=== PATIENT | male | born 1945 | race Caucasian/White ===

== ENCOUNTER 2018-08-09 02:46 | Inpatient (IN) | payer OTHER ==
[2018-08-09] MEDS ORDERED: ONDANSETRON HCL INJ/PF 4 MG/2 ML SDV IV ONE (03:57)
[2018-08-09] MEDS ORDERED: FENTANYL CITRATE INJ/PF 100 MCG/2 ML AMPUL IV ONE ×2 (04:00→05:57)
--- NOTE | 2018-08-09 04:13 | ER Document Report ---
ED General <JESS MEADE - Last Filed: 08/09/18 06:21> - HPI Patient complains to provider of: severe abdominal pain radiates to back Onset: This evening <GENARO FERNANDEZ - Last Filed: 08/09/18 06:23> <SHIMON OGLESBY - Last Filed: 08/09/18 06:54> <GOPAL ANDERSON - Last Filed: 08/09/18 09:51> - General Chief Complaint: Abdominal Pain Stated Complaint: ABDOMINAL PAIN Time Seen by Provider: 08/09/18 03:47 Notes: 72-year-old male with hypertension presents to the emergency department for severe abdominal pain that radiates to his back. He states the pain has been present for a couple of months but got acutely worse about 7 hours ago and he could not take the pain anymore and came to the emergency department. He endorses feeling nauseated and vomiting one time, denies fevers, denies dyspnea , denies chest pain. He has regular bowel movements last one was yesterday morning. (GENARO FERNANDEZ) - Related Data Allergies/Adverse Reactions: tetracycline Allergy (Verified 08/09/18 02:52) Past Medical History - General Information source: Patient - Social History Smoking Status: Current Every Day Smoker - 1/2 ppd for years Cigarette use (# per day): Yes - 10 Frequency of alcohol use: Occasional Drug Abuse: None Lives with: Spouse/Significant other Family History: Reviewed & Not Pertinent - Past Medical History Cardiac Medical History: Reports: Hx Hypertension <GENARO FERNANDEZ - Last Filed: 08/09/18 06:23> Review of Systems - Review of Systems Constitutional: See HPI EENT: See HPI Cardiovascular: See HPI Respiratory: See HPI Gastrointestinal: See HPI Genitourinary: See HPI Male Genitourinary: No symptoms reported Musculoskeletal: See HPI Skin: No symptoms reported Hematologic/Lymphatic: No symptoms reported Neurological/Psychological: No symptoms reported <GENARO FERNANDEZ - Last Filed: 08/09/18 06:23> Physical Exam <JESS MEADE - Last Filed: 08/09/18 06:21> - Vital signs Interpretation: Hypertensive <GENARO FERNANDEZ - Last Filed: 08/09/18 06:23> <SHIMON OGLESBY - Last Filed: 08/09/18 06:54> <TAMGOPAL Rebeca - Last Filed: 08/09/18 09:51> - Vital signs Vitals: Temp Pulse Resp BP Pulse Ox 97.9 F 62 19 170/114 H 99 08/09/18 02:47 08/09/18 02:47 08/09/18 02:47 08/09/18 02:47 08/09/18 02:47 - Notes Notes: Reviewed vital signs and nursing note as charted by RN. CONSTITUTIONAL: well-nourished in discomfort acting appropriately for age HEAD: Normocephalic, atraumatic, no swelling EYES: PERRL, Conjunctivae clear, no drainage, EOMI, no scleral icterus NECK: Supple, no masses CARD: Regular rate and rhythm, no murmurs, no rubs, no gallops, capillary refill < 2 seconds, symmetric pulses RESP: The lungs are clear to auscultation bilaterally, no wheezing, no rales, no rhonchi. Respiratory rate and effort are normal, normal chest excursion. No respiratory distress, no retractions, no stridor, no nasal flaring, no accessory muscle use. ABD/GI: Normal bowel sounds, non-distended, soft, non-tender, no rebound, no guarding, no palpable organomegaly EXT: Normal ROM in all joints, non-tender to palpation, no effusions, no edema SKIN: Normal color for age and race, warm, dry, good turgor, no acute lesions noted NEURO: No facial asymmetry, moves all extremities equally, motor and sensory intact (GENARO FERNANDEZ) Course - Laboratory Result Diagrams: 08/09/18 04:12 08/09/18 04:12 <JESS MEADE - Last Filed: 08/09/18 06:21> - Laboratory Result Diagrams: 08/09/18 04:12 08/09/18 04:12 <GENARO FERNANDEZ - Last Filed: 08/09/18 06:23> - Laboratory Result Diagrams: 08/09/18 04:12 08/09/18 04:12 <SHIMON OGLESBY - Last Filed: 08/09/18 06:54> - Laboratory Result Diagrams: 08/09/18 04:12 08/09/18 04:12 <GOPAL ANDERSON Rebeca - Last Filed: 08/09/18 09:51> - Re-evaluation Re-evalutation: 08/09/18 06:21 Patient was initially evaluated by the physician's assistant scientist. When evaluated patient as well. Patient has severe pain that was occurring in his subxiphoid epigastric region. Pain radiates straight to the back. This pain is not at all reduced with palpation. Appears to very firmly over his abdomen and I cannot reproduce any of the pain. Pain was improved but no. He was given a CTA of the chest abdomen pelvis to rule out dissection. This is negative. Of concern is his EKG does have large T wave inversions in the anterior lateral precordial leads. Unclear if these are old or new being that we have no old EKG for comparison 2. Troponin initially is 0.019. Being that the patient's pain is in the lower chest upper abdomen area and he has EKG changes and it is non-reproducible palpation I am concerned that this could be cardiac in etiology and therefore we called spoke with Dr. Tony, hospitalist. He request that we do a repeat troponin because of the troponin is up trending quickly then there is concern that the patient is having ongoing active ischemia and may need to be transferred. Therefore ordered repeat troponin. If the repeat troponin is staying stable and the patient can be omitted here. If the patient has ongoing pain in uptrending troponin then he will meet criteria to be transferred being that he has ongoing pain with an up trending opponent and EKG changes. Dictation of this chart was performed using voice recognition software; therefore, there may be some unintended grammatical errors. (JESS MEADE) 08/09/18 04:19 72-year-old male with hypertension who ran out of his blood pressure meds presents to the emergency department for severe abdominal pain that radiates through to his back. He is an every day smoker and has had this pain that was very mild for the last couple of months. It is concerning that the pain became excruciating in a sudden manner so we will initiate a workup to include lab work , lipase, lactate, CTA of the chest abdomen and pelvis. 08/09/18 05:43 Lab work completed. Very mild leukocytosis. Patient is not anemic. Troponin 0 0.014. EKG concerning for T wave inversions and possible ischemia in the precordial leads. Lipase within normal range. CTA done, read pending. Dr. Meade gave the patient nitroglycerin to see if symptoms improve. 08/09/18 05:56 Reevaluated patient patient did not respond to nitroglycerin. CTA negative for dissection or aneurysm. 08/09/18 06:23 Patient's care and report transferred to Mikhail Oglesby PA-C. Patient is stable at this time. (GENARO FERNANDEZ) 08/09/18 07:00 No change in pt. condition. Pt hand off from Pablo Fernandez PA-C was that if the pts trop stays the same hospitalist Dr. Tony will admit. If the trop elevates at all he will need to be transferred for chest pains rule. Repeat EKG shows no changes from initial. Still with T wave inversions lead I, II, aVL, V2, V3, V4, V5, V6. Awaiting repeat Trop at this time. Care and report transferred to Danita Anderson NP. (SHIMON OGLESBY) 08/09/18 08:17 Repeat troponin 0.0414 remains stable. Called and spoke with hospitalist Dr. Salas. He will come and evaluate the patient and will consult with cardiology before making a determination if patient can be accepted for admission here. 08/09/18 09:00 Accepted for admission by Dr. Salas. (GOPAL ANDERSON) - Vital Signs Vital signs: Temp Pulse Resp BP Pulse Ox 98.0 F 71 19 165/89 H 98 08/09/18 06:00 08/09/18 08:48 08/09/18 02:47 08/09/18 09:04 08/09/18 09:04 - Laboratory Laboratory results interpreted by me: 08/09/18 08/09/18 04:12 04:12 WBC 11.5 H RDW 14.3 H Seg Neutrophils % 84.1 H Lymphocytes % 10.2 L Absolute Neutrophils 9.7 H Glucose 130 H Discharge <JESS MEADE - Last Filed: 08/09/18 06:21> <GENARO FERNANDEZ - Last Filed: 08/09/18 06:23> <SHIMON OGLESBY - Last Filed: 08/09/18 06:54> - Discharge Admitting Provider: Hospitalist Unit Admitted: Telemetry <GOPAL ANDERSON - Last Filed: 08/09/18 09:51> - Discharge Clinical Impression: Epigastric pain, EKG, abnormal Condition: Stable Disposition: ADMITTED INPATIENT
[2018-08-09 04:25] LABS: ABSOLUTE BASOPHILS # (AUTO) 0.1 10^3/uL (0.0-0.2); ABSOLUTE LYMPHOCYTES (AUTO) 1.2 10^3/uL (0.5-4.7); ABSOLUTE MONOCYTES (AUTO) 0.5 10^3/uL (0.1-1.4); ABSOLUTE NEUT (AUTO) 9.7 10^3/uL (1.7-8.2); BASOPHILS % (AUTO) 0.7 % (0-2); EOSINOPHILS % (AUTO) 0.4 % (0-6); HEMOGLOBIN 16.3 g/dL (13.5-17.0); LYMPHOCYTES % (AUTO) 10.2 % (13-45); MEAN CORPUSCULAR HEMOGLOBIN 31.7 pg (27.0-33.4); MEAN CORPUSCULAR HGB CONC 34.7 g/dL (32.0-36.0); MEAN CORPUSCULAR VOLUME 92 fl (80-97); MONOCYTES % (AUTO) 4.6 % (3-13); PLATELET COUNT 225 10^3/uL (150-450); RED BLOOD COUNT 5.14 10^6/uL (4.35-5.55); RED CELL DISTRIBUTION WIDTH 14.3 % (11.5-14.0); SEGMENTED NEUTROPHILS % (AUTO) 84.1 % (42-78); TOTAL CELLS COUNTED % (AUTO) 100 %; WHITE BLOOD COUNT 11.5 10^3/uL (4.0-10.5)
[2018-08-09 04:40] LABS: ALANINE AMINOTRANSFERASE 22 U/L (21-72); ALBUMIN 4.3 g/dL (3.5-5.0); ALKALINE PHOSPHATASE 74 U/L (38-126); ANION GAP 12 (5-19); ASPARTATE AMINO TRANSFERASE 23 U/L (17-59); BILIRUBIN,DIRECT 0.2 mg/dL (0.0-0.4); BILIRUBIN,TOTAL 0.5 mg/dL (0.2-1.3); BLOOD UREA NITROGEN 12 mg/dL (7-20); CALCIUM 10.1 mg/dL (8.4-10.2); CARBON DIOXIDE 24 mmol/L (22-30); CHLORIDE 106 mmol/L (98-107); GLUCOSE 130 mg/dL (75-110); LIPASE 89.1 U/L (23-300); POTASSIUM 4.4 mmol/L (3.6-5.0); SODIUM 142.2 mmol/L (137-145); TOTAL PROTEIN 6.8 g/dL (6.3-8.2)
[2018-08-09] MEDS: NITROGLYCERIN 0.4 MG/TAB 25 TAB/BOTTLE SL PRN ×2 (05:39→05:47)
--- NOTE | 2018-08-09 05:41 | RADIOLOGY REPORT (SQ) ---
CLINICAL HISTORY: concern for aortic dissection COMPARISON: None. TECHNIQUE: CT CHEST ANGIOGRAPHY WITHOUT THEN WITH IV CONTRAST, CT ABDOMEN PELVIS WITHOUT THEN WITH IV CONTRAST on 08/09/2018 3:54 AM [employer]. MIPS reconstructions were generated. This exam was performed according to our departmental dose-optimization program, which includes automated exposure control, adjustment of the mA and/or kV according to patient size and/or use of iterative reconstruction technique. FINDINGS: Vascular: Thoracic aorta is normal in course and caliber without aneurysm or dissection. Abdominal aorta is normal in course and caliber without aneurysm. Pelvic arteries are patent without aneurysm or occlusion. Chest: The heart is normal in size. There is no pericardial effusion. Intrathoracic lymph nodes are not enlarged. There is no pleural effusion, pleural thickening or pneumothorax. Central airways are patent. Lungs are clear with no consolidation, mass or interstitial lung disease. Abdomen: There is a small probable cyst in the anterior liver. There is no biliary dilatation. Gallbladder contains several calcified gallstones. The pancreas and spleen are normal in appearance. There is an indeterminate 1.9 cm lesion within the right kidney anteriorly with a mural calcification. Left kidney is unremarkable. Adrenal glands are normal. There is no free air. There is no retroperitoneal adenopathy. Pelvis: There is moderate to severe distal colonic diverticulosis. Urinary bladder is unremarkable. There is no free fluid. Appendix is not clearly seen. Skeleton: There are no acute osseous findings. No suspicious bony lesions. IMPRESSION: No aortic dissection or aneurysm. No pulmonary embolus. No acute inflammatory process. No definite renal or ureteral calculi. Almost 2 cm indeterminate right renal lesion. Consider contrast study or ultrasound and nonemergent setting.
[2018-08-09] MEDS ORDERED: ASPIRIN 325 MG TABLET PO ONE (05:57)
--- NOTE | 2018-08-09 09:38 | EKG REPORT ---
SEVERITY:- ABNORMAL ECG - SINUS RHYTHM PROBABLE LEFT ATRIAL ABNORMALITY INCOMPLETE RIGHT BUNDLE BRANCH BLOCK ST DEPRESSION AND DEEP T INVERSION, CONSIDER ISCHEMIA, ANT-LAT LDS : Confirmed by: Miguel Angel Moy 09-Aug-2018 09:38:05
--- NOTE | 2018-08-09 09:38 | EKG REPORT ---
SEVERITY:- ABNORMAL ECG - SINUS RHYTHM INCOMPLETE RIGHT BUNDLE BRANCH BLOCK ST DEPRESSION AND DEEP T WAVE INVERSION, CONSIDER ISCHEMIA, ANT-LAT LDS : Confirmed by: Miguel Angel Moy 09-Aug-2018 09:37:40
[2018-08-09] MEDS ORDERED: LIDOCAINE 2% VISCOUS SOLN 20 ML UDCUP PO ONE (10:00)
[2018-08-09] MEDS ORDERED: METOCLOPRAMIDE HCL ORAL SOLN 10 MG/10 ML UDCUP PO ONE (10:00)
[2018-08-09] MEDS ORDERED: MAG HYDROX/AL HYDROX/SIMETH SUSP 30 ML UDCUP PO ONE (10:00)
[2018-08-09] MEDS: MORPHINE SULFATE 10 MG/ML INJ IV PRN ×2 (10:33→16:36)
[2018-08-09] MEDS: PANTOPRAZOLE SODIUM 40 MG VIAL IV SCH (10:33)
[2018-08-09] MEDS ORDERED: DEXTROSE 50%-WATER 25 GM/50 ML DISP.SYRIN IV PRN ×2 (12:16)
[2018-08-09] MEDS ORDERED: DEXTROSE 40% GEL 15 GM TUBE PO PRN ×2 (12:16)
[2018-08-09] MEDS ORDERED: GLUCAGON,HUMAN RECOMB 1 MG INJ SUBCUT PRN (12:16)
[2018-08-09] MEDS ORDERED: HYDROMORPHONE HCL INJ/PF 2 MG/ML AMPULE IV PRN (12:18)
[2018-08-09] MEDS ORDERED: KETOROLAC TROMETHAMINE INJ/PF 30 MG/1 ML SDV IV ONE (12:30)
--- NOTE | 2018-08-09 14:53 | PDOC CONSULTATION ---
Consultation Consult Date: 08/09/18 Consult reason:: abdominal pains with gallstones History of Present Illness Admission Date/PCP: 08/09/18 09:59 Patient complains of: lower abdominal pains History of Present Illness: CHARLENE RUDD is a 72 year old male who suddenly noted lower abdominal pains yesterday am. Associated N/V and radiates to the back. Claims he is known to have right kidney stone. His pains are steady and about 4/5 in intensity. Denies fever nor chills. No constipation /diarrhea nor dysuria. Past Medical History Cardiac Medical History: Reports: Hypertension GI Medical History: Reports: Gastroesophageal Reflux Disease Musculoskeltal Medical History: Reports: Arthritis Social History Lives with: Spouse/Significant other Smoking Status: Current Every Day Smoker Drugs: None - Advance Directive Resuscitation Status: Full Code Family History Family History: Reviewed & Not Pertinent Parental Family History Reviewed: Yes Children Family History Reviewed: No Sibling(s) Family History Reviewed.: No Medication/Allergy Home Medications: Cholecalciferol (Vitamin D3) [Vitamin D3] 1,000 unit PO QAM 08/09/18 Hydrochlorothiazide [Hydrodiuril 25 mg Tablet] 25 mg PO QAM 08/09/18 Losartan Potassium [Cozaar 50 mg Tablet] 100 mg PO QAM 08/09/18 Multivitamin [Tab-A-Breanna (Multiple Vitamin) Tablet] 1 tab PO QAM 08/09/18 Allergies/Adverse Reactions: tetracycline Allergy (Verified 08/09/18 02:52) Review of Systems Constitutional: PRESENT: as per HPI Eyes: PRESENT: other - no visual/hearing changes Cardiovascular: PRESENT: other - no chest pains/cough Gastrointestinal: PRESENT: as per HPI Genitourinary: PRESENT: as per HPI Musculoskeletal: PRESENT: other - denies back pains in the past Neurological: PRESENT: other - no seizures Hematologic/Lymphatic: PRESENT: other - no easy bruising Physical Exam Vital Signs: Temp Pulse Resp BP Pulse Ox 98.0 F 71 19 167/85 H 97 08/09/18 06:00 08/09/18 08:48 08/09/18 02:47 08/09/18 10:00 08/09/18 10:01 General appearance: PRESENT: mild distress Head exam: PRESENT: atraumatic Eye exam: PRESENT: conjunctiva pink Mouth exam: PRESENT: moist Neck exam: PRESENT: full ROM Respiratory exam: PRESENT: clear to auscultation milly Cardiovascular exam: PRESENT: RRR Pulses: PRESENT: normal radial pulses, +2 pedal pulses bilateral Vascular exam: PRESENT: normal capillary refill GI/Abdominal exam: PRESENT: soft, tenderness - umbilicus down to pelvis, no rebound Rectal exam: PRESENT: deferred Extremities exam: PRESENT: full ROM Musculoskeletal exam: PRESENT: ambulatory Neurological exam: PRESENT: alert, oriented to person, oriented to place, oriented to time, oriented to situation Psychiatric exam: PRESENT: appropriate affect Skin exam: PRESENT: normal color, warm Results Impressions: Chest/Abdomen CTA 08/09/18 03:54 IMPRESSION: No aortic dissection or aneurysm. No pulmonary embolus. No acute inflammatory process. No definite renal or ureteral calculi. Almost 2 cm indeterminate right renal lesion. Consider contrast study or ultrasound and nonemergent setting. Abdomen/Pelvis CTA 08/09/18 03:57 IMPRESSION: No aortic dissection or aneurysm. No pulmonary embolus. No acute inflammatory process. No definite renal or ureteral calculi. Almost 2 cm indeterminate right renal lesion. Consider contrast study or ultrasound and nonemergent setting. Assessment & Plan - Diagnosis (1) Gallstones Is this a current diagnosis for this admission?: Yes - Time Time Spent: 30 to 50 Minutes - Inpatient Certification Medical Necessity: Need For IV Fluids, Need for Pain Control, Need for Surgery - Plan Summary Plan Summary: His pains are in the lower abdomen. Will get US of gallbladder and see if evidence of cholecystitis Will get HIDA scan if no cholecystitis on US of gallbladder.
[2018-08-09 15:12] LABS: APPEARANCE,URINE SLIGHTLY-CLOUDY; BILIRUBIN,URINE NEGATIVE (NEGATIVE); COLOR,URINE YELLOW; GLUCOSE, URINE NEGATIVE (NEGATIVE); KETONES,URINE TRACE mg/dL (NEGATIVE); LEUKOCYTE ESTERASE,URINE MODERATE (NEGATIVE); NITRITE,URINE NEGATIVE (NEGATIVE); PROTEIN,URINE NEGATIVE (NEGATIVE); URINE SPECIFIC GRAVITY 1.039; UROBILINOGEN,URINE NEGATIVE mg/dL (<2.0)
[2018-08-09] MEDS ORDERED: MORPHINE SULFATE 10 MG/ML INJ ONE (16:31)
[2018-08-09] MEDS: HEPARIN SOD (PORCINE) 5,000 UNIT/ML 1 ML SYRINGE SUBCUT SCH ×2 (16:41→22:15)
--- NOTE | 2018-08-09 16:52 | RADIOLOGY REPORT (SQ) ---
EXAM DESCRIPTION: U/S ABDOMEN LIMITED W/O DOP COMPLETED DATE/TIME: 08/09/2018 4:35 pm REASON FOR STUDY: GALLBLADDER HAS GALLSTONES ON CT COMPARISON: Abdominal CT scan dated 08/09/2008 TECHNIQUE: Dynamic and static grayscale images acquired of the abdomen and recorded on PACS. Additio nal selected color Doppler and spectral images recorded. LIMITATIONS: None. FINDINGS: PANCREAS: No masses. Visualized pancreatic duct normal caliber. LIVER: No masses. Echotexture normal. LIVER VASCULATURE: Normal directional flow of the main portal vein. GALLBLADDER: Multiple gallstones are identified which were present on the previous CT scan. There is thickening of the gallbladder wall measuring 3.8 mm and pericholecystic fluid is identified. The ap pearance is consistent with cholecystitis. ULTRASOUND-DETECTED GREENFIELD'S SIGN: Negative. INTRAHEPATIC DUCTS AND COMMON DUCT: CBD and intrahepatic ducts normal caliber. No filling defects. INFERIOR VENA CAVA: Normal flow. AORTA: No aneurysm. RIGHT KIDNEY: 12.6 cm in length. Normal echogenicity. A hypoechoic mass is identified measuring 3.5 x 3.0 x 4.2 cm in diameters which correlates with the CT findings of an indeterminate mass. No hydro nephrosis. No calcifications. PERITONEAL AND RIGHT PLEURAL SPACE: No ascites or effusions. OTHER: No other significant findings. IMPRESSION: Multiple gallstones are identified which were present on the previous CT scan. There is some thickening of the gallbladder wall and pericholecystic fluid is identified. The appearance is consistent with cholecystitis. Clinical correlation is recommended. Hypoechoic right renal mass whi ch correlates with the CT findings of an indeterminate mass. MRI may be of value for further evaluat ion if clinically warranted. Other findings as noted above TECHNICAL DOCUMENTATION: JOB ID: [id number] [employer]- All Rights Reserved Reading location - IP/workstation name: [email or web address]
--- NOTE | 2018-08-09 17:36 | RADIOLOGY REPORT (SQ) ---
EXAM DESCRIPTION: NM HIDA SCAN COMPLETED DATE/TIME: 08/09/2018 5:23 pm REASON FOR STUDY: GALLSTONES, RUQ PAIN COMPARISON: None. RADIONUCLIDE AND DOSE: DOSAGE RADIONUCLIDE: 5.22 millicuries Tc99m Mebrofenin. Booster 1.08 mCi marcos hnetium 99 mebrofenin DOSAGE MORPHINE: 2 mg The route of agent administration: Intravenous TECHNIQUE: Serial imaging right upper quadrant up to 60 minutes following injection of radionuclide. Patient imaged AP and Right Lateral. LIMITATIONS: None. FINDINGS: LIVER: Normal visualization without areas of photopenia. INTRA-HEPATIC BILE DUCTS: Temporal visualization normal. No dilatation. COMMON BILE DUCT: Normal without dilatation or delayed visualization. GALLBLADDER: Gallbladder is not visualized OTHER: No other significant finding. IMPRESSION: Cystic duct obstruction. No common duct obstruction. TECHNICAL DOCUMENTATION: JOB ID: [id number] [employer]- All Rights Reserved Reading location - IP/workstation name: [email or web address]
[2018-08-09] MEDS: NORMAL SALINE 1000 ML 1,000 ML IV PRN (17:55)
[2018-08-09] MEDS ORDERED: HYDRALAZINE HCL INJ/PF 20 MG/1 ML SDV IV PRN (18:15)
[2018-08-09] MEDS ORDERED: CEFTRIAXONE 1 GM/D5W RTU 1 GM/50 ML RTUPB IV SCH ×2 (19:00)
--- NOTE | 2018-08-09 19:29 | PDOC CONSULTATION ---
Consultation-Blank Consultation: Cardiology CONSULTATION by Dr. Denae Dixon on 08/09/2018. Patient seen at 3 PM on 08/09/2018. Note 60 minutes spent on this patient more than 50% of time spent in direct patient care. REASON all for consultation: Patient with epigastric and abdominal pain and abnormal EKG assess underlying significance of EKG changes which is consistent with ischemia, and also possible preoperative cardiac risk assessment for possible gallbladder surgery. History of present illness: Patient is a 72-year-old male with known history of hypertension admitted with epigastric and abdominal pain. The patient states that he has been having been having abdominal pain for the last 6 months which is intermittent it is not related to exertion. It starts in the epigastric region region and radiates down to the right upper quadrant and also to the lower part of the abdomen. This is associated with nausea. The pains usually last about an hour, and does not associated with exertion. There is no associated shortness of breath or palpitations near syncope or syncope. The patient states today his pain was very severe and hence he came into the emergency room. He also felt very nauseous and vomited once there was no coffee grounds. The patient denies any palpitations. No PND orthopnea. PAST MEDICAL HISTORY: History of hypertension present. He has had a history of abnormal EKG since 2013 at which time he had a negative Cardiolite stress test. This was done in [place] in [place]. The patient has no anginal symptoms. There is no history of AK or congestive heart failure or cardiac arrhythmia. There is no leg edema. The patient is very active. He has a history of hypertension which the patient states is well controlled, but at present due to the abdominal pain and him not getting his usual antihypertensive that he takes at home his blood pressure is a little high. He has no history of syncope. No history of congestive heart failure. He has a history of arthritis. He also has a history of GERD 6 and has symptoms of heartburn if he eats any fatty foods or spicy foods. He also states eating fatty foods causes him not only heartburn but also right upper quadrant discomfort suggestive of fatty food intolerance. No history of chronic kidney disease. He has no history of asthma or COPD. He is not a diabetic. There is no thyroid disease. He states his cholesterol levels are normal. Past surgical history: He states when he was age 42 he had an appendectomy done. FAMILY HISTORY: He states his mother of respiratory failure. His father of heart failure. There is no history of coronary artery disease in the family. No history of sudden . ALLERGIES: He is allergic to tetracycline. SOCIAL HISTORY: The patient is a smoker. He smokes 3 cigarettes/day. There is no history of EtOH abuse. DISPOSITION: He is a full code. His is his surrogate healthcare decision maker. REVIEW OF SYSTEMS: CONSTITUTIONAL: Denies any fever chills or rigors. There is no night sweats. The patient denies any fatigue or generalized weakness. HEAD : Denies headaches or head injury. EYES: No history of amblyopia diplopia no history of amaurosis fugax EARS: No vertigo. No history of tinnitus. No recurrent ear infections. No hearing loss. NOSE: No history of hayfever. No nosebleeds. MOUTH: No altered taste sensation. No ulcers in the mouth. No bleeding from the gums. THROAT: No odynophagia or dysphagia. No recurrent sore throats. SKIN: No history of yellowish discoloration of the skin. No pruritus. No history of psoriasis. No history of skin cancer. NECK: No history of C-spine arthritis symptoms. No neck pain. No swelling in the neck. LUNGS: No history of asthma or COPD. No history of sleep apnea. No history of pulmonary embolism. No wheezing. No symptoms of upper or lower respiratory tract infection. No cough or sputum production. No hemoptysis or pleuritic chest pain. HEART: History of abnormal EKG negative stress test with nuclear imaging about 2013. No history of AK. No anginal symptoms patient very active. Good effort tolerance. No history of congestive heart failure. No history of palpitations. No history of PND or orthopnea. No shortness of breath. No syncope or near syncope. No history of leg edema. No history of PND orthopnea. GI: History of fatty food intolerance present. Abdominal pain intermittent since 6 months. Workup now shows that the patient is chronic cholecystitis with cholelithiasis with cystic duct obstruction and may need surgery. History of GERD symptoms present. No history of GI bleed. No history of jaundice. No cervicitis. No history of altered bowel movements. History of nausea and vomiting present. No history of diarrhea. MUSCULAR skeletal: History of arthritis present. No history of collagen vascular disease. RENAL: No history of chronic kidney disease. No symptoms of enlarged prostate. No history of hematuria pyuria or dysuria. No symptoms of UTI. ENDOCRINE: No history of diabetes mellitus. No history of thyroid disease. No history of polydipsia polyuria. No history of heat or cold intolerance. PROFESSOR OF BUSINESS ADMINISTRATION: No history of TIA or CVA. No history of headaches migraines or seizures. No history of gait imbalance. No history of sleep apnea. PSYCHIATRIC: No history of anxiety or depression no suicidal ideation. No homicidal ideation. VASCULAR : No history of calf or buttock claudication. No history of DVT. HEMATOLOGICAL : No history of bleeding diathesis no history of clotting disorders.. PHYSICAL EXAMINATION the patient is well-built and well-nourished. In no acute distress. Even though he has mild abdominal pain. The patient is well-groomed. Selected Entries 08/09/18 15:04 Temperature 97.4 F Temperature Tympanic Source Pulse Rate 55 L Respiratory 20 Rate Blood Pressure 180/82 H [Upper Arm] Blood Pressure 114 Mean [Upper Arm ] Blood Pressure Supine Position [Upper Arm] O2 Sat by Pulse 95 Oximetry Oxygen Delivery Room Air Method ( includes room air) HEAD: Is atraumatic normocephalic. EYES: Pupils equal round regular react to light and accommodation. External ocular movements are normal. There is no conjunctival pallor. There is no scleral icterus. EARS: Tympanic membranes are intact. There is no lesions on the penis. NOSE: There is no deviated nasal septum. There is no inflammation of the nasal mucous membrane. MOUTH: Mucous nares and mouth are moist tongue is moist there is no ulcers. There is no bleeding from the gums. THROAT: There is no redness of the oropharynx. There is no exudates. SKIN: There is no ecchymosis or petechiae. There is no skin lesions or skin rashes. NECK: Is supple. There is no JVD. Carotids are equal there is no bruits. There is no lymphadenopathy. There is no goiter. There is no accessory muscles of respiration use. Trachea central. LUNGS: Are clear to auscultation percussion without any rhonchi rales or wheezing. There is no chest wall tenderness. HEART: S1-S2 is heard there is a faint S4 gallop present there is no S3 gallop (systolic murmur left sternal border and apex. There is no rub. There is no pericardial rub. ABDOMEN: Is soft there is mild discomfort on palpation. There is no hepato-splenomegaly. Bowel sounds are well heard. There is no tender areas of masses. There is no rebound guarding or rigidity EXTREMITIES: Femorals are well felt. There is no femoral bruits. Leg pulses are well felt. There is no pedal edema. There is no DVT or cellulitis. There is no calf tenderness. PROFESSOR OF BUSINESS ADMINISTRATION: The patient is conscious awake alert oriented x3 with no focal deficits. PSYCHIATRIC: The patient judgment and insight are intact her affect is normal. 08/09/18 08/09/18 08/09/18 04:12 04:12 04:12 WBC 11.5 H RBC 5.14 Hgb 16.3 Hct 47.0 MCV 92 Plt Count 225 Sodium 142.2 Potassium 4.4 Chloride 106 Carbon Dioxide 24 Anion Gap 12 BUN 12 Creatinine 0.74 Est GFR (Non-Af Amer) > 60 Glucose 130 H Lactic Acid 1.0 Calcium 10.1 Magnesium 2.1 Total Bilirubin 0.5 Direct Bilirubin 0.2 Neonat Total Bilirubin Not Reportable Neonat Direct Bilirubin Not Reportable Neonat Indirect Bili Not Reportable AST 23 ALT 22 Alkaline Phosphatase 74 Troponin I Total Protein 6.8 Albumin 4.3 Lipase 89.1 08/09/18 08/09/18 04:12 07:00 WBC RBC Hgb Hct MCV Plt Count Sodium Potassium Chloride Carbon Dioxide Anion Gap BUN Creatinine Est GFR (Non-Af Amer) Glucose Lactic Acid Calcium Magnesium Total Bilirubin Direct Bilirubin Neonat Total Bilirubin Neonat Direct Bilirubin Neonat Indirect Bili AST ALT Alkaline Phosphatase Troponin I 0.014 0.014 Total Protein Albumin Lipase 08/09/18 03:57 Ondansetron HCl/Pf [Zofran Inj/Pf 4 mg/2 ml Sdv] 4 mg IV NOW ONE 08/09/18 04:00 Fentanyl Citrate/Pf [Sublimaze Inj/Pf 100 Mcg/2 ml Ampule] 50 mcg IV NOW ONE 08/09/18 05:57 Aspirin [Aspirin 325 mg Tablet] 325 mg PO NOW ONE Fentanyl Citrate/Pf [Sublimaze Inj/Pf 100 Mcg/2 ml Ampule] 50 mcg IV NOW ONE 08/09/18 10:00 Lidocaine HCl [Xylocaine 2% Viscous Soln 20 ml Udcup] 15 ml PO NOW ONE Mag Hydrox/Al Hydrox/Simeth [Maalox Plus Susp 30 Udcup] 30 ml PO NOW ONE Metoclopramide HCl [Reglan Oral Soln 10 mg/10 ml Udcup] 10 mg PO NOW ONE Pantoprazole Sodium [Protonix IV Inj 40 mg Vial] 40 mg IV DAILY 08/09/18 12:16 Dextrose 50%-Water [Dextrose Inj 50% Syringe (25 gm/50 ml)] 12.5 gm IV PRN PRN Dextrose 50%-Water [Dextrose Inj 50% Syringe (25 gm/50 ml)] 25 gm IV PRN PRN Dextrose [Glutose 40% Gel 15 gm Tube] 15 gm PO PRN PRN Dextrose [Glutose 40% Gel 15 gm Tube] 30 gm PO PRN PRN Glucagon,Human Recombinant [Glucagen Inj 1 mg Vial] 1 mg SUBCUT PRN PRN 08/09/18 12:17 Ketorolac Tromethamine [Toradol Inj/Pf 30 mg/1 ml Sdv] 30 mg IV Q4HP PRN 08/09/18 12:18 Hydromorphone HCl/Pf [Dilaudid Inj/Pf 2 mg/ml Ampule] 2 mg IV Q4HP PRN 08/09/18 12:30 Ketorolac Tromethamine [Toradol Inj/Pf 30 mg/1 ml Sdv] 30 mg IV NOW ONE 08/09/18 14:00 Heparin Sodium,Porcine [Heparin Inj 5,000 Units/ml 1 ml Syringe] 5,000 unit SUBCUT Q8 08/09/18 16:31 Morphine Sulfate [Morphine 10 mg/ml Inj] 10 mg .ROUTE .STK-MED ONE 08/09/18 18:05 Normal Saline 1000 ml [NaCl 0.9% 1000 ml IV Soln] 1,000 ml IV CONTINUOUS, at 125 mL/h. 08/09/18 18:15 Hydralazine HCl [Apresoline Inj/Pf 20 mg/1 ml Sdv] 20 mg IV Q4HP PRN 08/09/18 20:30 Ceftriaxone Sodium [Rocephin Inj 1000 mg Vial] 1,000 mg Dextrose 5%-Water [ D5w 50 ml IV Soln] 50 ml IV QPM EKG: Sinus rhythm. Significant T inversion in anterolateral leads consistent with ischemia. CHEST X-ray: Is negative for any acute process. CT of the abdomen shows:: Multiple gallstones. There is a right renal mass. Ultrasound of the gallbladder: Shows multiple calcified gallstones. With thickening of the gallbladder wall with pericholecystic fluid suggestive of cholecystitis. HIDA scan of the gallbladder: Shows nonvisualization of the gallbladder with cystic duct obstruction. No common bile duct obstruction. IMPRESSION/RECOMMENDATION: 1. Cholecystitis possibly acute on chronic with cholelithiasis with cystic duct obstruction.. 2. Abnormal EKG: So far troponin I is negative. And the patient has no anginal symptoms. Note that the EKG compared with his EKG of 2015 shows that the T wave is a deeper in the anterolateral leads, and hence there is a new change. Hence would recommend getting a IV Lexiscan Cardiolite stress test and an echocardiogram to assess patient's cardiac risk for the impending gallbladder surgery. 3. Hypertension: Not well controlled we will resume the patient's Cozaar at 50 mg p.o. nightly 12 hours. 4. GERD: Continue proton pump inhibitors. 5. Tobacco abuse disorder: Ill effects of of tobacco smoking discussed with the patient and tobacco cessation counseling was given. 5 minutes spent on this. Medications reviewed. Medications adjustment discussed. Management plan discussed with the patient, with the attending physician on the case and also with the surgicalist Further cardiac risk assessment for the surgery will depend on the results of the IV Lexiscan Cardiolite stress test and the patient's echocardiographic findings. Since the patient had a HIDA scan would have to postpone the patient' s IV Cardiolite stress test on Sunday. Medical decision making is of high complexity. Note I called the patient's cardiology office and had a stone and got some records faxed over, which I have reviewed. Dr. Malik will follow the patient in the morning. In view of the patient's abnormal EKG would recommend transferring the patient to 3 S. on 3 W. telemetry unit for closer cardiac monitoring of the patient.
[2018-08-09] MEDS: KETOROLAC TROMETHAMINE INJ/PF 30 MG/1 ML SDV IV PRN (19:42)
--- NOTE | 2018-08-09 21:23 | PDOC H&P ---
History of Present Illness Patient complains of: epigastric pain History of Present Illness: CHARLENE RUDD is a 72 year old male with a past medical history of hypertension who presented with epigastric pain, on and off for the past 4 months but has worsened in the past 12 hours. Patient says it is achy/sharp, nonexertional. He denies any chest pain shortness of breath. He said he had some nausea and an episode of vomiting. He denies any diarrhea. No fever or chills. Past Medical History Cardiac Medical History: Reports: Hypertension Musculoskeltal Medical History: Reports: Arthritis Social History Lives with: Spouse/Significant other Smoking Status: Current Every Day Smoker - 1/2 ppd for years Family History Family History: Reviewed & Not Pertinent Parental Family History Reviewed: Yes - No premature CAD Children Family History Reviewed: No Sibling(s) Family History Reviewed.: No Medication/Allergy Home Medications: Cholecalciferol (Vitamin D3) [Vitamin D3] 1,000 unit PO QAM 08/09/18 Hydrochlorothiazide [Hydrodiuril 25 mg Tablet] 25 mg PO QAM 08/09/18 Losartan Potassium [Cozaar 50 mg Tablet] 100 mg PO QAM 08/09/18 Multivitamin [Tab-A-Breanna (Multiple Vitamin) Tablet] 1 tab PO QAM 08/09/18 Allergies/Adverse Reactions: tetracycline Allergy (Verified 08/09/18 02:52) Review of Systems All systems: reviewed and no additional remarkable complaints except as stated - As mentioned in HPI Physical Exam Vital Signs: Temp Pulse Resp BP Pulse Ox 98.0 F 71 19 150/85 H 95 08/09/18 06:00 08/09/18 08:48 08/09/18 02:47 08/09/18 08:01 08/09/18 08:01 Intake & Output 08/08/18 08/09/18 08/10/18 06:59 06:59 06:59 Weight 198 lb 10.184 oz General appearance: PRESENT: no acute distress, well-developed, well-nourished Head exam: PRESENT: atraumatic, normocephalic Eye exam: PRESENT: conjunctiva pink, EOMI, PERRLA. ABSENT: scleral icterus Ear exam: PRESENT: normal external ear exam Mouth exam: PRESENT: moist, tongue midline Neck exam: ABSENT: carotid bruit, JVD, lymphadenopathy, thyromegaly Respiratory exam: PRESENT: clear to auscultation milly. ABSENT: rales, rhonchi, wheezes Cardiovascular exam: PRESENT: RRR. ABSENT: diastolic murmur, rubs, systolic murmur Pulses: PRESENT: normal dorsalis pedis pul GI/Abdominal exam: PRESENT: normal bowel sounds, soft, tenderness - Very mild epigastric direct tenderness, no rebound tenderness, negative Matias sign. ABSENT: distended, guarding, mass, Matias's sign, organolmegaly, rebound Rectal exam: PRESENT: deferred Neurological exam: PRESENT: alert, awake, oriented to person, oriented to place , oriented to time, oriented to situation, CN II-XII grossly intact. ABSENT: motor sensory deficit Results Laboratory Results: 08/09/18 04:12 08/09/18 04:12 08/09/18 08/09/18 08/09/18 04:12 04:12 04:12 WBC 11.5 H RBC 5.14 Hgb 16.3 Hct 47.0 MCV 92 MCH 31.7 MCHC 34.7 RDW 14.3 H Plt Count 225 Seg Neutrophils % 84.1 H Lymphocytes % 10.2 L Monocytes % 4.6 Eosinophils % 0.4 Basophils % 0.7 Absolute Neutrophils 9.7 H Absolute Lymphocytes 1.2 Absolute Monocytes 0.5 Absolute Eosinophils 0.0 Absolute Basophils 0.1 Sodium 142.2 Potassium 4.4 Chloride 106 Carbon Dioxide 24 Anion Gap 12 BUN 12 Creatinine 0.74 Est GFR ( Amer) > 60 Est GFR (Non-Af Amer) > 60 Glucose 130 H Lactic Acid 1.0 Calcium 10.1 Magnesium 2.1 Total Bilirubin 0.5 AST 23 ALT 22 Alkaline Phosphatase 74 Total Protein 6.8 Albumin 4.3 Lipase 89.1 08/09/18 08/09/18 04:12 07:00 Troponin I 0.014 0.014 Impressions: Chest/Abdomen CTA 08/09/18 03:54 IMPRESSION: No aortic dissection or aneurysm. No pulmonary embolus. No acute inflammatory process. No definite renal or ureteral calculi. Almost 2 cm indeterminate right renal lesion. Consider contrast study or ultrasound and nonemergent setting. Abdomen/Pelvis CTA 08/09/18 03:57 IMPRESSION: No aortic dissection or aneurysm. No pulmonary embolus. No acute inflammatory process. No definite renal or ureteral calculi. Almost 2 cm indeterminate right renal lesion. Consider contrast study or ultrasound and nonemergent setting. Assessment & Plan - Diagnosis (1) Epigastric pain Is this a current diagnosis for this admission?: Yes Plan: Likely secondary to cholelithiasis and cholecystitis. Surgery has been consulted and has ordered a HIDA scan and right upper quadrant ultrasound. Results show cholecystitis and cholelithiasis and cystic duct obstruction. Patient needs surgical intervention. Discussed with surgicalist who is planning to proceed with surgery tomorrow. (2) Acute cholecystitis Is this a current diagnosis for this admission?: Yes Plan: As per #1. We will also start patient on IV Rocephin. (3) T wave inversion in EKG Is this a current diagnosis for this admission?: Yes Plan: Troponin is only mildly elevated. Cardiology was consulted. Patient does have old T wave inversions but new ones are deeper compared to previous EKG. - Time Time Spent: 30 to 50 Minutes
[2018-08-09] MEDS: CEFTRIAXONE SODIUM 1,000 MG in DEXTROSE 5%-WATER 50 ML IV SCH (23:27)
[2018-08-10 05:00] LABS: ABSOLUTE BASOPHILS # (AUTO) 0.1 10^3/uL (0.0-0.2); ABSOLUTE EOSINOPHILS # (AUTO) 0.2 10^3/uL (0.0-0.6); ABSOLUTE LYMPHOCYTES (AUTO) 1.4 10^3/uL (0.5-4.7); ABSOLUTE NEUT (AUTO) 9.8 10^3/uL (1.7-8.2); BASOPHILS % (AUTO) 0.9 % (0-2); EOSINOPHILS % (AUTO) 1.8 % (0-6); HEMATOCRIT 44.5 % (37.9-51.0); HEMOGLOBIN 15.3 g/dL (13.5-17.0); LYMPHOCYTES % (AUTO) 11.4 % (13-45); MEAN CORPUSCULAR HEMOGLOBIN 31.7 pg (27.0-33.4); MEAN CORPUSCULAR HGB CONC 34.4 g/dL (32.0-36.0); MEAN CORPUSCULAR VOLUME 92 fl (80-97); PLATELET COUNT 199 10^3/uL (150-450); RED BLOOD COUNT 4.83 10^6/uL (4.35-5.55); RED CELL DISTRIBUTION WIDTH 14.8 % (11.5-14.0); SEGMENTED NEUTROPHILS % (AUTO) 77.9 % (42-78); TOTAL CELLS COUNTED % (AUTO) 100 %; WHITE BLOOD COUNT 12.6 10^3/uL (4.0-10.5)
[2018-08-10 05:24] LABS: ALANINE AMINOTRANSFERASE 21 U/L (21-72); ALBUMIN 3.6 g/dL (3.5-5.0); ALKALINE PHOSPHATASE 70 U/L (38-126); ANION GAP 10 (5-19); ASPARTATE AMINO TRANSFERASE 20 U/L (17-59); BILIRUBIN,DIRECT 0.2 mg/dL (0.0-0.4); BILIRUBIN,TOTAL 0.6 mg/dL (0.2-1.3); BLOOD UREA NITROGEN 14 mg/dL (7-20); CARBON DIOXIDE 24 mmol/L (22-30); CHLORIDE 108 mmol/L (98-107); GLUCOSE 107 mg/dL (75-110); POTASSIUM 4.2 mmol/L (3.6-5.0); SODIUM 141.8 mmol/L (137-145); TOTAL PROTEIN 5.9 g/dL (6.3-8.2)
[2018-08-10] MEDS: NORMAL SALINE 1000 ML 1,000 ML IV PRN ×2 (05:58→17:08)
[2018-08-10] MEDS: HEPARIN SOD (PORCINE) 5,000 UNIT/ML 1 ML SYRINGE SUBCUT SCH ×3 (05:58→21:09)
[2018-08-10 07:59] LABS: APPEARANCE,URINE SLIGHTLY-CLOUDY; BILIRUBIN,URINE NEGATIVE (NEGATIVE); COLOR,URINE YELLOW; GLUCOSE, URINE NEGATIVE (NEGATIVE); KETONES,URINE NEGATIVE (NEGATIVE); LEUKOCYTE ESTERASE,URINE NEGATIVE (NEGATIVE); NITRITE,URINE NEGATIVE (NEGATIVE); PROTEIN,URINE NEGATIVE (NEGATIVE); URINE SPECIFIC GRAVITY 1.025; UROBILINOGEN,URINE NEGATIVE mg/dL (<2.0)
[2018-08-10] MEDS: KETOROLAC TROMETHAMINE INJ/PF 30 MG/1 ML SDV IV PRN (08:56)
[2018-08-10] MEDS: LOSARTAN POTASSIUM 50 MG TABLET PO SCH ×2 (09:37→21:08)
[2018-08-10] MEDS: PANTOPRAZOLE SODIUM 40 MG VIAL IV SCH (09:37)
--- NOTE | 2018-08-10 10:43 | XCELERA REPORT ---
[address] [address] Transthoracic Echocardiogram Report Name: CHARLENE RUDD Age: 72 yrs Gender: Male : 1945 Patient Status: Inpatient Patient Location: [address] [place] [address] Study Date: 08/09/2018 08:13 PM Height: 72 in Weight: 198 lb BSA: 2.1 m2 Procedure: A complete two-dimensional transthoracic echocardiogram was performed (2D, M-mode, spectral and color flow Doppler). The study was technically difficult with many images being suboptimal in quality. Reason For Study: Abnormal EKG / Murmur / Pre-op Ordering Physician: TINY SALEH Performed By: Dolores Stapels Interpretation Summary Suboptimal quality study with many poor images limiting detailed cardiac evaluation. LVEF grossly appears normal at around 55-60%. RV systolic function appears normal. The transmitral spectral Doppler flow pattern is abnormal for age Aortic valve not well visualized but doppler data provided not suggestive of any significant stenosis. MV leaflets appear to open well. There is a trace amount of tricuspid regurgitation Right ventricular systolic pressure is normal. There is no pericardial effusion. IVC upper limit normal with normal respiratory variation. MMode/2D Measurements & Calculations RVDd: 2.6 cm LVIDd: 5.8 cm FS: 26.8 % LA dimension: 3.2 cm IVSd: 1.0 cm LVIDs: 4.3 cm EDV(Teich): 169.4 ml LVPWd: 1.2 cm ESV(Teich): 82.0 ml EF(Teich): 51.6 % Doppler Measurements & Calculations MV E max dary: MV P1/2t max dary: Ao V2 max: LV V1 max P.3 cm/sec 72.6 cm/sec 189.4 cm/sec 8.4 mmHg MV A max dary: MV P1/2t: 51.5 msec Ao max PG: LV V1 max: 74.0 cm/sec MVA(P1/2t): 4.3 cm2 14.3 mmHg 145.3 cm/sec MV E/A: 0.71 MV dec slope: 413.0 cm/sec2 MV dec time: 0.19 sec TV V2 max: PA V2 max: TR max dary: MV P1/2t-pr_phl: 97.0 cm/sec 97.9 cm/sec 183.3 cm/sec 51.5 msec TV max PG: PA max P.8 mmHg TR max P.8 mmHg 13.4 mmHg Left Ventricle The left ventricle is grossly normal size. There is mild concentric left ventricular hypertrophy. The left ventricular ejection fraction is normal. The transmitral spectral Doppler flow pattern is abnormal for age. Wall motion cannot be accurately commented on, but no definite regional wall motion abnormalities noted. Right Ventricle The right ventricle is grossly normal size. A moderator band is seen in the right ventricle. The right ventricular systolic function is normal. Atria Right atrium not well visualized secondary to technical limitations. The left atrium is not well visualized secondary to technical limitations. Mitral Valve The mitral valve is not well visualized. MV leaflets appear to open well. Aortic Valve The aortic valve is not well visualized secondary to technical limitations. There is a peak gradient of 14 mm of Hg. Max transaortic jet velocity 190 cm/sec. Tricuspid Valve The tricuspid valve is not well visualized secondary to technical limitations. There is a trace amount of tricuspid regurgitation. Right ventricular systolic pressure is normal. Pulmonic Valve The pulmonic valve is not well visualized. Great Vessels IVC upper limit normal with normal respiratory variation. Effusions There is no pericardial effusion. : TINY SALEH > Pablo Elliott
--- NOTE | 2018-08-10 14:58 | PDOC PROGRESS REPORT ---
Subjective Progress Note for:: 08/10/18 Subjective:: CHARLENE RUDD is a 72 year old male with a past medical history of hypertension who presented with epigastric pain, on and off for the past 4 months but has worsened in the past 12 hours. He was found to have cholelithiasis with cholecystitis. Patient was also noted to have deep T wave inversions on EKGs. No acute event overnight. Patient says that his epigastric pain is significantly improved but he still has on and off abdominal pain. No fever or chills. No nausea or vomiting. Patient is tolerating diet well so far. Cardiology has scheduled him for a stress testing on Sunday prior to surgery. Reason For Visit: EPIGASTRIC PAIN,ELEVATED TROP,T WAVE INVERSIONS Physical Exam Vital Signs: Temp Pulse Resp BP Pulse Ox 98.2 F 78 18 153/73 H 96 08/10/18 11:27 08/10/18 11:27 08/10/18 11:27 08/10/18 11:27 08/10/18 11:27 Intake & Output 08/09/18 08/10/18 08/11/18 06:59 06:59 06:59 Intake Total 1050 1095 Output Total 700 Balance 350 1095 Weight 196 lb 13.965 oz General appearance: PRESENT: no acute distress, well-developed, well-nourished Head exam: PRESENT: atraumatic, normocephalic Eye exam: PRESENT: conjunctiva pink, EOMI, PERRLA. ABSENT: scleral icterus Ear exam: PRESENT: normal external ear exam Mouth exam: PRESENT: moist, tongue midline Neck exam: ABSENT: carotid bruit, JVD, lymphadenopathy, thyromegaly Respiratory exam: PRESENT: clear to auscultation milly. ABSENT: rales, rhonchi, wheezes Cardiovascular exam: PRESENT: RRR. ABSENT: diastolic murmur, rubs, systolic murmur Pulses: PRESENT: normal dorsalis pedis pul Vascular exam: PRESENT: normal capillary refill GI/Abdominal exam: PRESENT: normal bowel sounds, soft. ABSENT: distended, guarding, mass, organolmegaly, rebound, tenderness Rectal exam: PRESENT: deferred Extremities exam: PRESENT: full ROM. ABSENT: calf tenderness, clubbing, pedal edema Neurological exam: PRESENT: alert, awake, oriented to person, oriented to place , oriented to time, oriented to situation, CN II-XII grossly intact. ABSENT: motor sensory deficit Results Laboratory Results: 08/10/18 04:26 08/10/18 04:26 08/09/18 08/10/18 08/10/18 14:50 04:26 04:26 WBC 12.6 H RBC 4.83 Hgb 15.3 Hct 44.5 MCV 92 MCH 31.7 MCHC 34.4 RDW 14.8 H Plt Count 199 Seg Neutrophils % 77.9 Lymphocytes % 11.4 L Monocytes % 8.0 Eosinophils % 1.8 Basophils % 0.9 Absolute Neutrophils 9.8 H Absolute Lymphocytes 1.4 Absolute Monocytes 1.0 Absolute Eosinophils 0.2 Absolute Basophils 0.1 Sodium 141.8 Potassium 4.2 Chloride 108 H Carbon Dioxide 24 Anion Gap 10 BUN 14 Creatinine 0.77 Est GFR ( Amer) > 60 Est GFR (Non-Af Amer) > 60 Glucose 107 Calcium 9.0 Total Bilirubin 0.6 AST 20 ALT 21 Alkaline Phosphatase 70 Total Protein 5.9 L Albumin 3.6 Urine Color YELLOW Urine Appearance SLIGHTLY-CLOUDY Urine pH 6.0 Ur Specific [place] 1.039 Urine Protein NEGATIVE Urine Glucose (UA) NEGATIVE Urine Ketones TRACE H Urine Blood MODERATE H Urine Nitrite NEGATIVE Ur Leukocyte Esterase MODERATE H Urine WBC (Auto) 18 Urine RBC (Auto) 11 08/10/18 06:05 WBC RBC Hgb Hct MCV MCH MCHC RDW Plt Count Seg Neutrophils % Lymphocytes % Monocytes % Eosinophils % Basophils % Absolute Neutrophils Absolute Lymphocytes Absolute Monocytes Absolute Eosinophils Absolute Basophils Sodium Potassium Chloride Carbon Dioxide Anion Gap BUN Creatinine Est GFR ( Amer) Est GFR (Non-Af Amer) Glucose Calcium Total Bilirubin AST ALT Alkaline Phosphatase Total Protein Albumin Urine Color YELLOW Urine Appearance SLIGHTLY-CLOUDY Urine pH 6.0 Ur Specific [place] 1.025 Urine Protein NEGATIVE Urine Glucose (UA) NEGATIVE Urine Ketones NEGATIVE Urine Blood NEGATIVE Urine Nitrite NEGATIVE Ur Leukocyte Esterase NEGATIVE Urine WBC (Auto) 2 Urine RBC (Auto) 5 08/10/18 08:20 Troponin I 0.014 Impressions: Abdomen Ultrasound 08/09/18 00:00 IMPRESSION: Multiple gallstones are identified which were present on the previous CT scan. There is some thickening of the gallbladder wall and pericholecystic fluid is identified. The appearance is consistent with cholecystitis. Clinical correlation is recommended. Hypoechoic right renal mass which correlates with the CT findings of an indeterminate mass. MRI may be of value for further evaluation if clinically warranted. Other findings as noted above Hepatobiliary Scan Nuclear Medicine 08/09/18 00:00 IMPRESSION: Cystic duct obstruction. No common duct obstruction. Chest/Abdomen CTA 08/09/18 03:54 IMPRESSION: No aortic dissection or aneurysm. No pulmonary embolus. No acute inflammatory process. No definite renal or ureteral calculi. Almost 2 cm indeterminate right renal lesion. Consider contrast study or ultrasound and nonemergent setting. Abdomen/Pelvis CTA 08/09/18 03:57 IMPRESSION: No aortic dissection or aneurysm. No pulmonary embolus. No acute inflammatory process. No definite renal or ureteral calculi. Almost 2 cm indeterminate right renal lesion. Consider contrast study or ultrasound and nonemergent setting. Assessment & Plan - Diagnosis (1) Epigastric pain Is this a current diagnosis for this admission?: Yes Plan: Likely secondary to cholelithiasis and cholecystitis. Noted HIDA scan and right upper quadrant ultrasound results showing cholecystitis and cholelithiasis and cystic duct obstruction. Patient needs surgical intervention. Surgery has been deferred until after patient's stress test on Sunday. (2) Acute cholecystitis Is this a current diagnosis for this admission?: Yes Plan: As per #1. Continue IV Rocephin. (3) T wave inversion in EKG Is this a current diagnosis for this admission?: Yes Plan: Troponin is only mildly elevated. Cardiology following. Patient does have old T wave inversions but new ones are deeper compared to previous EKG. Patient has been scheduled for stress testing on Sunday. - Time Time Spent with patient: 15-24 minutes
[2018-08-10] MEDS: CEFTRIAXONE SODIUM 1,000 MG in DEXTROSE 5%-WATER 50 ML IV SCH (17:07)
--- NOTE | 2018-08-10 19:28 | PDOC PROGRESS REPORT ---
Subjective Progress Note for:: 08/10/18 Subjective:: Had abdominal pains earlier today and was medicated but tolerated diet Reason For Visit: EPIGASTRIC PAIN,ELEVATED TROPONIN,T WAVE INVERSION Physical Exam Vital Signs: Temp Pulse Resp BP Pulse Ox 99.0 F 85 17 157/72 H 99 08/10/18 15:49 08/10/18 15:49 08/10/18 15:49 08/10/18 15:49 08/10/18 15:49 Intake & Output 08/09/18 08/10/18 08/11/18 06:59 06:59 06:59 Intake Total 1050 1685 Output Total 700 300 Balance 350 1385 Weight 89.3 kg Exam: abdomen is soft and non tender Results Laboratory Results: 08/10/18 04:26 08/10/18 04:26 08/10/18 08/10/18 08/10/18 04:26 04:26 06:05 WBC 12.6 H RBC 4.83 Hgb 15.3 Hct 44.5 MCV 92 MCH 31.7 MCHC 34.4 RDW 14.8 H Plt Count 199 Seg Neutrophils % 77.9 Lymphocytes % 11.4 L Monocytes % 8.0 Eosinophils % 1.8 Basophils % 0.9 Absolute Neutrophils 9.8 H Absolute Lymphocytes 1.4 Absolute Monocytes 1.0 Absolute Eosinophils 0.2 Absolute Basophils 0.1 Sodium 141.8 Potassium 4.2 Chloride 108 H Carbon Dioxide 24 Anion Gap 10 BUN 14 Creatinine 0.77 Est GFR ( Amer) > 60 Est GFR (Non-Af Amer) > 60 Glucose 107 Calcium 9.0 Total Bilirubin 0.6 AST 20 ALT 21 Alkaline Phosphatase 70 Total Protein 5.9 L Albumin 3.6 Urine Color YELLOW Urine Appearance SLIGHTLY-CLOUDY Urine pH 6.0 Ur Specific [place] 1.025 Urine Protein NEGATIVE Urine Glucose (UA) NEGATIVE Urine Ketones NEGATIVE Urine Blood NEGATIVE Urine Nitrite NEGATIVE Ur Leukocyte Esterase NEGATIVE Urine WBC (Auto) 2 Urine RBC (Auto) 5 08/10/18 08:20 Troponin I 0.014 Impressions: Abdomen Ultrasound 08/09/18 00:00 IMPRESSION: Multiple gallstones are identified which were present on the previous CT scan. There is some thickening of the gallbladder wall and pericholecystic fluid is identified. The appearance is consistent with cholecystitis. Clinical correlation is recommended. Hypoechoic right renal mass which correlates with the CT findings of an indeterminate mass. MRI may be of value for further evaluation if clinically warranted. Other findings as noted above Hepatobiliary Scan Nuclear Medicine 08/09/18 00:00 IMPRESSION: Cystic duct obstruction. No common duct obstruction. Chest/Abdomen CTA 08/09/18 03:54 IMPRESSION: No aortic dissection or aneurysm. No pulmonary embolus. No acute inflammatory process. No definite renal or ureteral calculi. Almost 2 cm indeterminate right renal lesion. Consider contrast study or ultrasound and nonemergent setting. Abdomen/Pelvis CTA 08/09/18 03:57 IMPRESSION: No aortic dissection or aneurysm. No pulmonary embolus. No acute inflammatory process. No definite renal or ureteral calculi. Almost 2 cm indeterminate right renal lesion. Consider contrast study or ultrasound and nonemergent setting. 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 Continue antibiotic therapy
[2018-08-11] MEDS: HEPARIN SOD (PORCINE) 5,000 UNIT/ML 1 ML SYRINGE SUBCUT SCH ×3 (05:28→21:24)
[2018-08-11 06:04] LABS: ALANINE AMINOTRANSFERASE 22 U/L (21-72); ALBUMIN 3.1 g/dL (3.5-5.0); ALKALINE PHOSPHATASE 61 U/L (38-126); ANION GAP 8 (5-19); ASPARTATE AMINO TRANSFERASE 15 U/L (17-59); BILIRUBIN,DIRECT 0.2 mg/dL (0.0-0.4); BILIRUBIN,TOTAL 0.7 mg/dL (0.2-1.3); BLOOD UREA NITROGEN 9 mg/dL (7-20); CALCIUM 8.9 mg/dL (8.4-10.2); CARBON DIOXIDE 23 mmol/L (22-30); CHLORIDE 109 mmol/L (98-107); GLUCOSE 109 mg/dL (75-110); POTASSIUM 4.1 mmol/L (3.6-5.0); TOTAL PROTEIN 5.6 g/dL (6.3-8.2)
[2018-08-11] MEDS: PANTOPRAZOLE SODIUM 40 MG VIAL IV SCH (09:22)
[2018-08-11] MEDS: LOSARTAN POTASSIUM 50 MG TABLET PO SCH ×2 (09:22→21:23)
[2018-08-11] MEDS: KETOROLAC TROMETHAMINE INJ/PF 30 MG/1 ML SDV IV PRN (09:24)
[2018-08-11] MEDS ORDERED: BISACODYL 5 MG TABEC PO PRN (09:48)
--- NOTE | 2018-08-11 11:34 | PDOC PROGRESS REPORT ---
Subjective Progress Note for:: 08/11/18 Subjective:: CHARLENE RUDD is a 72 year old male with a past medical history of hypertension who presented with epigastric pain, on and off for the past 4 months but has worsened in the past 12 hours. He was found to have cholelithiasis with cholecystitis. Patient was also noted to have deep T wave inversions on EKGs. No acute event overnight. Patient says that his epigastric pain is waxing and waning but resolved after upon my encounter with him this morning. No fever or chills. No nausea or vomiting. Patient is tolerating diet well so far. He denies chest pain, palpitations or dizziness or SOB. He is scheduled for a stress testing on Sunday prior to gallbladder surgery. Reason For Visit: EPIGASTRIC PAIN,ELEVATED TROPONIN,T WAVE INVERSION Physical Exam Vital Signs: Temp Pulse Resp BP Pulse Ox 98.9 F 73 18 174/88 H 95 08/11/18 07:21 08/11/18 07:21 08/11/18 07:21 08/11/18 07:21 08/11/18 07:21 Intake & Output 08/10/18 08/11/18 08/12/18 06:59 06:59 06:59 Intake Total 1050 2165 Output Total 700 1800 Balance 350 365 Weight 196 lb 13.965 oz 191 lb 9.307 oz General appearance: PRESENT: no acute distress, well-developed, well-nourished Head exam: PRESENT: atraumatic, normocephalic Eye exam: PRESENT: conjunctiva pink, EOMI, PERRLA. ABSENT: scleral icterus Ear exam: PRESENT: normal external ear exam Mouth exam: PRESENT: moist, tongue midline Neck exam: ABSENT: carotid bruit, JVD, lymphadenopathy, thyromegaly Respiratory exam: PRESENT: clear to auscultation milly. ABSENT: rales, rhonchi, wheezes Cardiovascular exam: PRESENT: RRR. ABSENT: diastolic murmur, rubs, systolic murmur Pulses: PRESENT: normal dorsalis pedis pul GI/Abdominal exam: PRESENT: normal bowel sounds, soft. ABSENT: distended, guarding, mass, organolmegaly, rebound, tenderness Rectal exam: PRESENT: deferred Extremities exam: PRESENT: full ROM. ABSENT: calf tenderness, clubbing, pedal edema Neurological exam: PRESENT: alert, awake, oriented to person, oriented to place , oriented to time, oriented to situation, CN II-XII grossly intact. ABSENT: motor sensory deficit Results Laboratory Results: 08/10/18 04:26 08/11/18 05:03 08/11/18 05:03 Sodium 140.0 Potassium 4.1 Chloride 109 H Carbon Dioxide 23 Anion Gap 8 BUN 9 Creatinine 0.71 Est GFR ( Amer) > 60 Est GFR (Non-Af Amer) > 60 Glucose 109 Calcium 8.9 Total Bilirubin 0.7 AST 15 L ALT 22 Alkaline Phosphatase 61 Total Protein 5.6 L Albumin 3.1 L 08/10/18 08:20 Troponin I 0.014 Impressions: Abdomen Ultrasound 08/09/18 00:00 IMPRESSION: Multiple gallstones are identified which were present on the previous CT scan. There is some thickening of the gallbladder wall and pericholecystic fluid is identified. The appearance is consistent with cholecystitis. Clinical correlation is recommended. Hypoechoic right renal mass which correlates with the CT findings of an indeterminate mass. MRI may be of value for further evaluation if clinically warranted. Other findings as noted above Hepatobiliary Scan Nuclear Medicine 08/09/18 00:00 IMPRESSION: Cystic duct obstruction. No common duct obstruction. Chest/Abdomen CTA 08/09/18 03:54 IMPRESSION: No aortic dissection or aneurysm. No pulmonary embolus. No acute inflammatory process. No definite renal or ureteral calculi. Almost 2 cm indeterminate right renal lesion. Consider contrast study or ultrasound and nonemergent setting. Abdomen/Pelvis CTA 08/09/18 03:57 IMPRESSION: No aortic dissection or aneurysm. No pulmonary embolus. No acute inflammatory process. No definite renal or ureteral calculi. Almost 2 cm indeterminate right renal lesion. Consider contrast study or ultrasound and nonemergent setting. Assessment & Plan - Diagnosis (1) Epigastric pain Is this a current diagnosis for this admission?: Yes Plan: Likely secondary to cholelithiasis and cholecystitis. Noted HIDA scan and right upper quadrant ultrasound results showing cholecystitis and cholelithiasis and cystic duct obstruction. Patient needs surgical intervention. Surgery has been deferred until after patient's stress test tomorrow. (2) Acute cholecystitis Is this a current diagnosis for this admission?: Yes Plan: As per #1. Continue IV Rocephin. (3) T wave inversion in EKG Is this a current diagnosis for this admission?: Yes Plan: Troponin is only mildly elevated at 0.014 and have been flat on 3 cycles. Cardiology following. Patient does have old T wave inversions but new ones are deeper compared to previous EKG. Patient has been scheduled for stress testing on Sunday. - Time Time Spent with patient: 15-24 minutes
[2018-08-11] MEDS: NORMAL SALINE 1000 ML 1,000 ML IV PRN (15:18)
[2018-08-11] MEDS: CEFTRIAXONE SODIUM 1,000 MG in DEXTROSE 5%-WATER 50 ML IV SCH (17:00)
--- NOTE | 2018-08-11 19:48 | PDOC PROGRESS REPORT ---
Subjective Progress Note for:: 08/11/18 Subjective:: Had some abdominal pains Tolerating diet Reason For Visit: EPIGASTRIC PAIN,ELEVATED TROPONIN,T WAVE INVERSION Physical Exam Vital Signs: Temp Pulse Resp BP Pulse Ox 99.5 F 66 17 139/80 H 98 08/11/18 15:50 08/11/18 15:50 08/11/18 15:50 08/11/18 15:50 08/11/18 15:50 Intake & Output 08/10/18 08/11/18 08/12/18 06:59 06:59 06:59 Intake Total 1050 2165 1012 Output Total 700 1800 Balance 518 260 7592 Weight 89.3 kg 86.9 kg Exam: abdomen is soft and non tender Results Laboratory Results: 08/10/18 04:26 08/11/18 05:03 08/11/18 05:03 Sodium 140.0 Potassium 4.1 Chloride 109 H Carbon Dioxide 23 Anion Gap 8 BUN 9 Creatinine 0.71 Est GFR ( Amer) > 60 Est GFR (Non-Af Amer) > 60 Glucose 109 Calcium 8.9 Total Bilirubin 0.7 AST 15 L ALT 22 Alkaline Phosphatase 61 Total Protein 5.6 L Albumin 3.1 L 08/10/18 08:20 Troponin I 0.014 Impressions: Abdomen Ultrasound 08/09/18 00:00 IMPRESSION: Multiple gallstones are identified which were present on the previous CT scan. There is some thickening of the gallbladder wall and pericholecystic fluid is identified. The appearance is consistent with cholecystitis. Clinical correlation is recommended. Hypoechoic right renal mass which correlates with the CT findings of an indeterminate mass. MRI may be of value for further evaluation if clinically warranted. Other findings as noted above Hepatobiliary Scan Nuclear Medicine 08/09/18 00:00 IMPRESSION: Cystic duct obstruction. No common duct obstruction. Chest/Abdomen CTA 08/09/18 03:54 IMPRESSION: No aortic dissection or aneurysm. No pulmonary embolus. No acute inflammatory process. No definite renal or ureteral calculi. Almost 2 cm indeterminate right renal lesion. Consider contrast study or ultrasound and nonemergent setting. Abdomen/Pelvis CTA 08/09/18 03:57 IMPRESSION: No aortic dissection or aneurysm. No pulmonary embolus. No acute inflammatory process. No definite renal or ureteral calculi. Almost 2 cm indeterminate right renal lesion. Consider contrast study or ultrasound and nonemergent setting. Assessment & Plan - Diagnosis (1) Gallstones Is this a current diagnosis for this admission?: Yes - Time Time Spent with patient: 15-24 minutes - Plan Summary Plan Summary: For stress test in am then possible lap chyna if cleared by Cardiology
[2018-08-12 06:15] LABS: ABSOLUTE BASOPHILS # (AUTO) 0.1 10^3/uL (0.0-0.2); ABSOLUTE EOSINOPHILS # (AUTO) 0.4 10^3/uL (0.0-0.6); ABSOLUTE LYMPHOCYTES (AUTO) 1.8 10^3/uL (0.5-4.7); ABSOLUTE MONOCYTES (AUTO) 0.9 10^3/uL (0.1-1.4); ABSOLUTE NEUT (AUTO) 7.4 10^3/uL (1.7-8.2); BASOPHILS % (AUTO) 0.8 % (0-2); EOSINOPHILS % (AUTO) 3.4 % (0-6); HEMOGLOBIN 14.3 g/dL (13.5-17.0); LYMPHOCYTES % (AUTO) 17.1 % (13-45); MEAN CORPUSCULAR HEMOGLOBIN 31.6 pg (27.0-33.4); MEAN CORPUSCULAR HGB CONC 34.1 g/dL (32.0-36.0); MEAN CORPUSCULAR VOLUME 93 fl (80-97); MONOCYTES % (AUTO) 8.3 % (3-13); PLATELET COUNT 183 10^3/uL (150-450); RED BLOOD COUNT 4.54 10^6/uL (4.35-5.55); RED CELL DISTRIBUTION WIDTH 14.6 % (11.5-14.0); SEGMENTED NEUTROPHILS % (AUTO) 70.4 % (42-78); TOTAL CELLS COUNTED % (AUTO) 100 %; WHITE BLOOD COUNT 10.6 10^3/uL (4.0-10.5)
[2018-08-12 06:45] LABS: ALANINE AMINOTRANSFERASE 17 U/L (21-72); ALBUMIN 3.1 g/dL (3.5-5.0); ALKALINE PHOSPHATASE 57 U/L (38-126); ANION GAP 12 (5-19); ASPARTATE AMINO TRANSFERASE 15 U/L (17-59); BILIRUBIN,DIRECT 0.2 mg/dL (0.0-0.4); BILIRUBIN,TOTAL 0.4 mg/dL (0.2-1.3); BLOOD UREA NITROGEN 12 mg/dL (7-20); CALCIUM 8.9 mg/dL (8.4-10.2); CARBON DIOXIDE 20 mmol/L (22-30); CHLORIDE 111 mmol/L (98-107); GLUCOSE 93 mg/dL (75-110); POTASSIUM 4.4 mmol/L (3.6-5.0); SODIUM 142.5 mmol/L (137-145); TOTAL PROTEIN 5.5 g/dL (6.3-8.2)
[2018-08-12] MEDS: LOSARTAN POTASSIUM 50 MG TABLET PO SCH ×2 (10:39→21:06)
[2018-08-12] MEDS: PANTOPRAZOLE SODIUM 40 MG VIAL IV SCH (10:39)
--- NOTE | 2018-08-12 12:29 | PDOC PROGRESS REPORT ---
Subjective Progress Note for:: 08/12/18 Subjective:: CHARLENE RUDD is a 72 year old male with a past medical history of hypertension who presented with epigastric pain, on and off for the past 4 months but has worsened in the past 12 hours. He was found to have cholelithiasis with cholecystitis. Patient was also noted to have deep T wave inversions on EKGs. No acute event overnight. Patient says he has mild RUQ pain today. No fever or chills. No nausea or vomiting. Patient is tolerating diet well so far. He denies chest pain, palpitations or dizziness or SOB. He just completed the first part of the stress test and is waiting for completion of test. Reason For Visit: EPIGASTRIC PAIN,ELEVATED TROPONIN,T WAVE INVERSION Physical Exam Vital Signs: Temp Pulse Resp BP Pulse Ox 97.9 F 59 L 18 165/92 H 98 08/12/18 11:45 08/12/18 11:45 08/12/18 11:45 08/12/18 11:45 08/12/18 11:45 Intake & Output 08/11/18 08/12/18 08/13/18 06:59 06:59 06:59 Intake Total 1070 1252 0 Output Total 1800 975 Balance -730 277 0 Weight 191 lb 9.307 oz 195 lb 15.855 oz General appearance: PRESENT: no acute distress, well-developed, well-nourished Head exam: PRESENT: atraumatic, normocephalic Eye exam: PRESENT: conjunctiva pink, EOMI, PERRLA. ABSENT: scleral icterus Ear exam: PRESENT: normal external ear exam Mouth exam: PRESENT: moist, tongue midline Neck exam: ABSENT: carotid bruit, JVD, lymphadenopathy, thyromegaly Respiratory exam: PRESENT: clear to auscultation milly. ABSENT: rales, rhonchi, wheezes Cardiovascular exam: PRESENT: RRR. ABSENT: diastolic murmur, rubs, systolic murmur Pulses: PRESENT: normal dorsalis pedis pul GI/Abdominal exam: PRESENT: normal bowel sounds, soft. ABSENT: distended, guarding, mass, Matias's sign, organolmegaly, rebound, tenderness Rectal exam: PRESENT: deferred Neurological exam: PRESENT: alert, awake, oriented to person, oriented to place , oriented to time, oriented to situation, CN II-XII grossly intact. ABSENT: motor sensory deficit Results Laboratory Results: 08/12/18 05:04 08/12/18 05:04 08/12/18 08/12/18 05:04 05:04 WBC 10.6 H RBC 4.54 Hgb 14.3 Hct 42.0 MCV 93 MCH 31.6 MCHC 34.1 RDW 14.6 H Plt Count 183 Seg Neutrophils % 70.4 Lymphocytes % 17.1 Monocytes % 8.3 Eosinophils % 3.4 Basophils % 0.8 Absolute Neutrophils 7.4 Absolute Lymphocytes 1.8 Absolute Monocytes 0.9 Absolute Eosinophils 0.4 Absolute Basophils 0.1 Sodium 142.5 Potassium 4.4 Chloride 111 H Carbon Dioxide 20 L Anion Gap 12 BUN 12 Creatinine 0.72 Est GFR ( Amer) > 60 Est GFR (Non-Af Amer) > 60 Glucose 93 Calcium 8.9 Total Bilirubin 0.4 AST 15 L ALT 17 L Alkaline Phosphatase 57 Total Protein 5.5 L Albumin 3.1 L Impressions: Abdomen Ultrasound 08/09/18 00:00 IMPRESSION: Multiple gallstones are identified which were present on the previous CT scan. There is some thickening of the gallbladder wall and pericholecystic fluid is identified. The appearance is consistent with cholecystitis. Clinical correlation is recommended. Hypoechoic right renal mass which correlates with the CT findings of an indeterminate mass. MRI may be of value for further evaluation if clinically warranted. Other findings as noted above Hepatobiliary Scan Nuclear Medicine 08/09/18 00:00 IMPRESSION: Cystic duct obstruction. No common duct obstruction. Chest/Abdomen CTA 08/09/18 03:54 IMPRESSION: No aortic dissection or aneurysm. No pulmonary embolus. No acute inflammatory process. No definite renal or ureteral calculi. Almost 2 cm indeterminate right renal lesion. Consider contrast study or ultrasound and nonemergent setting. Abdomen/Pelvis CTA 08/09/18 03:57 IMPRESSION: No aortic dissection or aneurysm. No pulmonary embolus. No acute inflammatory process. No definite renal or ureteral calculi. Almost 2 cm indeterminate right renal lesion. Consider contrast study or ultrasound and nonemergent setting. Assessment & Plan - Diagnosis (1) Epigastric pain Is this a current diagnosis for this admission?: Yes Plan: Likely secondary to cholelithiasis and cholecystitis. Noted HIDA scan and right upper quadrant ultrasound results showing cholecystitis and cholelithiasis and cystic duct obstruction. Patient is scheduled for lap chyna pending stress testing results. (2) Acute cholecystitis Is this a current diagnosis for this admission?: Yes Plan: As per #1. Continue IV Rocephin. (3) T wave inversion in EKG Is this a current diagnosis for this admission?: Yes Plan: Troponin is only mildly elevated at 0.014 and have been flat on 3 cycles. Cardiology following. Patient does have old T wave inversions but new ones are deeper compared to previous EKG. Patient is awaiting completion of stress testing. - Time Time Spent with patient: 15-24 minutes
[2018-08-12] MEDS: NORMAL SALINE 1000 ML 1,000 ML IV PRN ×2 (13:44→20:47)
[2018-08-12] MEDS ORDERED: ROCURONIUM BROMIDE INJ 50 MG/5 ML VIAL IV ONE (13:58)
[2018-08-12] MEDS ORDERED: SUCCINYLCHOLINE CHLORIDE INJ 200 MG/10 ML VIAL ONE (13:58)
[2018-08-12] MEDS ORDERED: REGADENOSON INJ 0.4 MG/5 ML DISP.SYRIN IV ONE (14:44)
--- NOTE | 2018-08-12 17:08 | DRAGON STRESS TEST REPORT ---
Intravenous Lexiscan Cardiolite stress test using single photon emmision computerized tomography. Date of procedure: 08/12/2018.Ordering Provider: Dr. Denae Dixon. Patient's status: Inpatient. Indication: Abnormal EKG, and preoperative cardiac risk assessment. Coronary risk factors: Age, hypertension, and tobacco abuse disorder Resting EKG: Sinus Rhythm. LVH with strain pattern. Diffuse T inversion cannot rule out anterolateral ischemia. Stress EKG: No changes of ischemia. The patient no chest pain or discomfort and there were no arrhythmias seen. Reason for termination: Protocol. Conclusions: Normal EKG and hemodynamic response to IV Lexiscan. Nuclear data: At rest the patient was given 13.21 millicuries of technetium 99m sestamibi injected intravenously. As per protocol rest non gated SPECT images were obtained. Subsequently the patient was given intravenous Lexiscan at a dose of 0.4 mg in 5 mL intravenously, followed by flush with normal saline. Subsequently the stress dose of 41.5 millicuries of technetium 99m sestamibi was injected intravenously. As per protocol stress gated images were obtained. Nuclear interpretation: Review of images showed that all segments of the myocardium had normal perfusion at rest, and normal perfusion post stress with IV Lexiscan. All segments of the myocardium had normal motion, contraction, and thickening by gated study. T. I D. ratio was normal at 1.10. There is no transient ischemic LV dilatation. Computer read rest, and stress left ventricular ejection fraction were 40 %, and 43 %, respectively. Visually both the stress and rest ejection fractions were normal, and greater than 55%. Conclusion: 1. There is no scintigraphic evidence of Lexiscan induced myocardial ischemia. 2. There is no scintigraphic evidence of myocardial infarction/scar. Recommendations: 1. Check echo for LV ejection fraction correlation. 2. Aggressive risk factor modification, and treating the underlying co- morbidities. ELIZABETH
[2018-08-12] MEDS ORDERED: FENTANYL CITRATE INJ/PF 100 MCG/2 ML AMPUL ONE (17:16)
[2018-08-12] MEDS ORDERED: ACETAMINOPHEN 1,000 MG/100 ML RTUPB IV ONE (17:17)
[2018-08-12] MEDS ORDERED: SUGAMMADEX SODIUM 200 MG/2 ML SDV IV ONE (17:17)
[2018-08-12] MEDS ORDERED: MIDAZOLAM 2 MG/2 ML INJ ONE (17:17)
[2018-08-12] MEDS ORDERED: PROPOFOL INJ 200 MG/20 ML VIAL IV ONE (17:17)
[2018-08-12] MEDS ORDERED: DEXAMETHASONE SOD PHOSPHATE INJ 4 MG/1 ML VIAL ONE (17:17)
[2018-08-12] MEDS ORDERED: ONDANSETRON HCL INJ/PF 4 MG/2 ML SDV ONE (17:17)
[2018-08-12] MEDS ORDERED: BUPIVACAINE HCL 0.25 % INJ/PF (2.5 MG/1 ML) 30 ML VIAL ONE (17:27)
[2018-08-12] MEDS ORDERED: ONDANSETRON HCL INJ/PF 4 MG/2 ML SDV IV PRN (18:17)
[2018-08-12] MEDS ORDERED: FENTANYL CITRATE INJ/PF 100 MCG/2 ML AMPUL IV PRN ×3 (18:17)
[2018-08-12] MEDS ORDERED: MEPERIDINE HCL/PF INJ 25 MG/1 ML DISP.SYRIN IV PRN (18:17)
[2018-08-12] MEDS ORDERED: MORPHINE SULFATE 10 MG/ML INJ IV PRN (18:17)
[2018-08-12] MEDS ORDERED: DIPHENHYDRAMINE HCL 50 MG/ML VIAL IV PRN (18:17)
[2018-08-12] MEDS ORDERED: PROMETHAZINE HCL INJ 25 MG/1 ML VIAL IV PRN ×2 (18:17)
[2018-08-12] MEDS: HYDROMORPHONE HCL INJ/PF 2 MG/ML AMPULE ONE ×2 (19:30→19:35)
--- NOTE | 2018-08-12 19:31 | Operative Report ---
Operative Report DATE OF SURGERY: 08/12/18 PREOPERATIVE DIAGNOSIS: Acute cholecystitis with cholelithiasis POSTOPERATIVE DIAGNOSIS: Same OPERATION: 1. Laparoscopic cholecystectomy. 2. Extremely difficult modifier SURGEON: DANGELO HANNA ANESTHESIA: GA TISSUE REMOVED OR ALTERED: 1 gallbladder with contents COMPLICATIONS: None ESTIMATED BLOOD LOSS: 100 cc INTRAOPERATIVE FINDINGS: See below PROCEDURE: After obtaining informed consent, the patient was taken to the operating room. General Anesthesia was induced; the arms were extended, and the abdomen was exposed, and prepped and draped in a sterile fashion. Instrumentation was set up for laparoscopic cholecystectomy. Surgical plan and surgical timeout were conducted. A vertical incision was made above the umbilicus, and a verres needle was inserted uneventfully into the peritoneal cavity. Pneumoperitoneum was established. The verres needle was removed and a 5 mm trocar was inserted and a 5 mm flexible laparoscope was inserted. Visualization of the peritoneal cavity confirmed safe uneventful entry. Under direct visualization 3 additional 5 mm ports were established, one in the subxiphoid position and second in the subcostal position. The findings were significant for an acutely inflamed gallbladder thickened wall edematous. We embarked on a combination of top down and bottom up approach is to remove this extremely inflamed gallbladder. Multiple photos were taken. Multiple cameras were used in order to optimize visualization. The gallbladder had a thick rind surrounded by a thickened peritoneal layer. The planes were very obscured. Nonetheless were able to work from bottom up and top down in a circumferential fashion eventually suspending the gallbladder by its posterior attachments and the cystic duct. Photos were taken. The cystic duct was secured with 2 clips proximally clipped distally and then divided by the scissors. A combination of hook cautery and ligature dissector were used to remove the gallbladder from the liver bed. No dominant cystic artery was ever identified. The gallbladder was placed in Endobag and brought out of the patient to the supraumbilical port site with minimal fascial widening. There was no spillage of stones. Returned the peritoneal cavity and there was some minimal venous oozing so a large Rishabh drain was placed in the right upper quadrant port site incision and secured to the skin with 2-0 Prolene suture We again looked at the liver bed carefully and cauterized any minimal bleeders. We felt the wound bed was secured. Sponge and counts were correct. All ports removed under direct visualization, pneumoperitoneum evacuated, and 5 mm port wounds closed with 0 Vicryl and 3-0 Vicryl suture, benzoin and Steri- Strips. The patient was extubated, and taken to the recovery room in stable condition.
--- NOTE | 2018-08-12 19:37 | Progress Note ---
Provider Note Provider Note: Cardiology progress notes by Dr. Denae Dixon on 08/12/2018. SUBJECTIVE: The patient has some discomfort and tenderness in the right upper quadrant. There is no nausea or vomiting. There is no diarrhea. The patient denies any chest pain or discomfort. There is no PND orthopnea. There is no shortness of breath. There is no leg edema. There is no arrhythmias seen on the monitor. There is no dizziness near syncope or syncope. There is no TIA CVA symptoms. The patient did undergo Lexiscan IV Cardiolite stress test today. [See report below] On examination the patient is well-built and well-nourished. At present in no acute distress. He is well-groomed. Selected Entries 08/12/18 11:45 Temperature 97.9 F Temperature Axillary Source Pulse Rate 59 L Respiratory 18 Rate Blood Pressure 165/92 H Blood Pressure 116 Mean BP Location Left Arm BP Position Supine O2 Sat by Pulse 98 Oximetry Oxygen Delivery Room Air Method HEAD: Is atraumatic normocephalic. EYES: Pupils equal round regular react to light and accommodation. External ocular movements are normal. There is no conjunctival pallor. There is no scleral icterus. EARS: Tympanic membranes are intact. There is no lesions on the penis. NOSE: There is no deviated nasal septum. There is no inflammation of the nasal mucous membrane. MOUTH: Mucous nares and mouth are moist tongue is moist there is no ulcers. There is no bleeding from the gums. THROAT: There is no redness of the oropharynx. There is no exudates. SKIN: There is no ecchymosis or petechiae. There is no skin lesions or skin rashes. NECK: Is supple. There is no JVD. Carotids are equal there is no bruits. There is no lymphadenopathy. There is no goiter. There is no accessory muscles of respiration use. Trachea central. LUNGS: Are clear to auscultation percussion without any rhonchi rales or wheezing. There is no chest wall tenderness. HEART: S1-S2 is heard there is a faint S4 gallop present there is no S3 gallop (systolic murmur left sternal border and apex. There is no rub. There is no pericardial rub. ABDOMEN: Is soft there is mild discomfort on palpation. There is no hepato-splenomegaly. Bowel sounds are well heard. There is no tender areas of masses. There is no rebound guarding or rigidity EXTREMITIES: Femorals are well felt. There is no femoral bruits. Leg pulses are well felt. There is no pedal edema. There is no DVT or cellulitis. There is no calf tenderness. ACID CONDENSER: The patient is conscious awake alert oriented x3 with no focal deficits. PSYCHIATRIC: The patient judgment and insight are intact her affect is normal. 08/12/18 08/12/18 05:04 05:04 WBC 10.6 H Hgb 14.3 Hct 42.0 Plt Count 183 Sodium 142.5 Potassium 4.4 Chloride 111 H Carbon Dioxide 20 L Anion Gap 12 BUN 12 Creatinine 0.72 Est GFR (Non-Af Amer) > 60 Glucose 93 Calcium 8.9 Total Bilirubin 0.4 Direct Bilirubin 0.2 Neonat Total Bilirubin Not Reportable Neonat Direct Bilirubin Not Reportable Neonat Indirect Bili Not Reportable AST 15 L ALT 17 L Alkaline Phosphatase 57 Total Protein 5.5 L Albumin 3.1 L The patient's IV Lexiscan Cardiolite stress test showed no reversible ischemia, and there was no myocardial infarction or scar. IMPRESSION/RECOMMENDATION: 1. Cholecystitis possibly acute on chronic with cholelithiasis with cystic duct obstruction. Patient for surgery today. 2. Abnormal EKG: So far troponin I is negative. And the patient has no anginal symptoms. Note that the EKG compared with his EKG of 2014 shows that the T wave is a deeper in the anterolateral leads, and hence there is a new change. Patient's echocardiogram showed normal ejection fraction, no significant valvular theology. The patient stress test is negative. HENCE THE PATIENT WILL BE LOW/ACCEPTABLE CARDIAC RISK FOR CHOLECYSTECTOMY. This has been discussed with the surgicalist. Also discussed with attending physician on the case. 3. Hypertension: Not well controlled we will continue the patient's Cozaar at 50 mg p.o. nightly 12 hours. 4. GERD: Continue proton pump inhibitors. 5. PREOPERATIVE cardiovascular risk assessment examination. 6. Tobacco abuse disorder: MEDICATIONS REVIEWED. Stress test results were discussed with the patient, the attending physician, and the surgical list. As mentioned earlier will be low cardiac risk/acceptable cardiac risk for this procedure. Medical decision making is of high complexity, in view of an abnormal EKG, in spite of a negative Cardiolite stress test. Note 40 minutes spent on this patient more than 40% of the time spent in direct patient care. Postop would monitor the patient on telemetry. We will follow .
[2018-08-12] MEDS: CEFTRIAXONE SODIUM 1,000 MG in DEXTROSE 5%-WATER 50 ML IV SCH (21:05)
[2018-08-12] MEDS: KETOROLAC TROMETHAMINE INJ/PF 30 MG/1 ML SDV IV PRN (21:11)
[2018-08-13] MEDS: KETOROLAC TROMETHAMINE INJ/PF 30 MG/1 ML SDV IV PRN ×2 (01:45→05:54)
[2018-08-13] MEDS: LOSARTAN POTASSIUM 50 MG TABLET PO SCH (09:02)
[2018-08-13] MEDS: PANTOPRAZOLE SODIUM 40 MG VIAL IV SCH (09:02)
--- NOTE | 2018-08-13 13:56 | PDOC DISCHARGE SUMMARY ---
General - Admit/Disc Date/PCP Admission Date/Primary Care Provider: 08/10/18 15:05 Discharge Date: 08/13/18 - Discharge Diagnosis (1) Acute cholecystitis Is this a current diagnosis for this admission?: Yes (3) Epigastric pain Is this a current diagnosis for this admission?: Yes - Additional Information Resuscitation Status: Full Code Discharge Diet: Other (Comments) - low fat Discharge Activity: No Lifting Over 10 Pounds Home Medications: Cholecalciferol (Vitamin D3) [Vitamin D3] 1,000 unit PO QAM 08/09/18 Hydrochlorothiazide [Hydrodiuril 25 mg Tablet] 25 mg PO QAM 08/09/18 Losartan Potassium [Cozaar 50 mg Tablet] 100 mg PO QAM 08/09/18 Multivitamin [Tab-A-Breanna (Multiple Vitamin) Tablet] 1 tab PO QAM 08/09/18 History of Present Illness History of Present Illness: CHARLENE RUDD is a 72 year old male with a past medical history of hypertension who presented with epigastric pain, on and off for the past 4 months but has worsened in the past 12 hours. Patient says it is achy/sharp, nonexertional. He denies any chest pain shortness of breath. He said he had some nausea and an episode of vomiting. He denies any diarrhea. No fever or chills. Hospital Course Hospital Course: Noted HIDA scan and right upper quadrant ultrasound results showing cholecystitis and cholelithiasis and cystic duct obstruction. Patient underwent lap chyna and tolerated the procedure well. He is cleared for discharge by surgery. T wave inversion in EKG Troponin is only mildly elevated at 0.014 and have been flat on 3 cycles. Cardiology evaluated the patient in the hospital. Patient does have old T wave inversions but new ones are deeper compared to previous EKG. stress test was negative and the patient was cleared for the surgery.. Physical Exam Vital Signs: Temp Pulse Resp BP Pulse Ox 97.8 F 64 22 H 138/82 H 97 08/13/18 12:00 08/13/18 12:00 08/13/18 12:00 08/13/18 12:00 08/13/18 12:00 Intake & Output 08/12/18 08/13/18 08/14/18 06:59 06:59 06:59 Intake Total 1252 3515 1492 Output Total 975 1495 400 Balance 277 2020 1092 Weight 195 lb 15.855 oz 199 lb 1.239 oz General appearance: PRESENT: no acute distress, cooperative Head exam: PRESENT: atraumatic, normocephalic Eye exam: PRESENT: EOMI. ABSENT: conjunctival injection Mouth exam: PRESENT: neck supple Neck exam: ABSENT: meningismus Respiratory exam: PRESENT: clear to auscultation milly. ABSENT: accessory muscle use Cardiovascular exam: PRESENT: RRR Pulses: PRESENT: normal carotid pulses GI/Abdominal exam: PRESENT: normal bowel sounds, soft. ABSENT: ascites Rectal exam: PRESENT: deferred Neurological exam: PRESENT: alert, altered, awake, oriented to person, oriented to place, oriented to time, oriented to situation Results Laboratory Results: 08/12/18 05:04 08/12/18 05:04 Impressions: Abdomen Ultrasound 08/09/18 00:00 IMPRESSION: Multiple gallstones are identified which were present on the previous CT scan. There is some thickening of the gallbladder wall and pericholecystic fluid is identified. The appearance is consistent with cholecystitis. Clinical correlation is recommended. Hypoechoic right renal mass which correlates with the CT findings of an indeterminate mass. MRI may be of value for further evaluation if clinically warranted. Other findings as noted above Hepatobiliary Scan Nuclear Medicine 08/09/18 00:00 IMPRESSION: Cystic duct obstruction. No common duct obstruction. Chest/Abdomen CTA 08/09/18 03:54 IMPRESSION: No aortic dissection or aneurysm. No pulmonary embolus. No acute inflammatory process. No definite renal or ureteral calculi. Almost 2 cm indeterminate right renal lesion. Consider contrast study or ultrasound and nonemergent setting. Abdomen/Pelvis CTA 08/09/18 03:57 IMPRESSION: No aortic dissection or aneurysm. No pulmonary embolus. No acute inflammatory process. No definite renal or ureteral calculi. Almost 2 cm indeterminate right renal lesion. Consider contrast study or ultrasound and nonemergent setting. Qualifiers - * PATIENT BEING DISCHARGED WITH ANY OF THE FOLLOWING DIAGNOSIS: No
[2018-08-13 13:58] VITALS: BP 139/69
== END 2018-08-13 14:25 | disposition home or self-care (01) | DRG 419 ==
LOC: ER 02:46 → INTOOBSV 09:59 → OBSVTOIN 09:59 → EH 09:59 → 4W 10:50 → 3W 21:02 → OBSVTOIN 08-10 15:05
PROVIDERS: ADMIT Internal Medicine; ATTEND Internal Medicine
PROC: 0FT44ZZ Resection of Gallbladder, Percutaneous Endoscopic Approach (ICD-10-PCS; principal; 2018-08-12 16:00)
DX: K80.13 Calculus of gallbladder with acute and chronic cholecystitis with obstruction (principal); I10 Essential (primary) hypertension; K21.9 Gastro-esophageal reflux disease without esophagitis; F17.210 Nicotine dependence, cigarettes, uncomplicated
CPT/HCPCS: 36415; 71275; 74174; 76705; 78226; 78452; 790; 80053; 81001; 83605; 83690; 83735; 84484; 85025; 87040; 88304; 93005; 93010; 93017; 93306; 96374; 96375; 96376; 99285; A9500; A9537; G0378; J0131; J0330; J0696; J1100; J1170; J1644; J1885; J2250; J2270; J2405; J2704; J2785; J3010; J3490; J7030; Q9969; S0164